=== PATIENT | male | born 1950 | race Caucasian/White ===

== ENCOUNTER → 2023-03-22 04:00 | Outpatient (REF) | payer MEDICARE, OTHER, SELFPAY | LOC: DHSLP 04:00 | PROVIDERS: ATTENDING PHYSICIAN Internal Medicine; FAMILY PHYSICIAN Family Medicine | DX: G47.33 Obstructive sleep apnea (adult) (pediatric) (principal) | CPT/HCPCS: 95800 ==

== ENCOUNTER 2023-05-18 11:08 | Day surgery (SDC) | payer MEDICARE, OTHER, SELFPAY ==
[2023-05-18 13:25] VITALS: BMI 39.6
--- NOTE | 2023-05-18 15:21 | ITS.CL.CARDI ---
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
Cardioversion
Procedure Report:
Cardioversion Report:
Date of Procedure: May 18, 2023
Procedure: Cardioversion
Indication: Symptomatic atrial fibrillation on Eliquis for more than the last 3 weeks without any missed doses
Performing Physician: Giana Oneal MD, JOSE, [facility] [place]
Technique: The patient was brought to the holding area. Signed informed consent was obtained. A time out was called and performed. The patient was anesthetized by the anesthesia service. Anticoagulation status was reviewed and appropriate. R2 pads
were placed anteriorly and posteriorly. Two 200 J synchronized biphasic shocks were delivered which failed to restore sinus rhythm. A third attempt was made using 360 J of synchronized biphasic shock with successfully restored normal sinus rhythm
with frequent PACs. There were no complications.
Conclusion: Uncomplicated cardioversion from atrial fibrillation to sinus rhythm after three total synchronized shocks.
Recommendation: Routine post cardioversion care. 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
Giana Oneal MD, FACC, [facility] [place]
== END 2023-05-18 13:58 | disposition home or self-care (01) ==
LOC: CATH 11:08
PROVIDERS: ATTENDING PHYSICIAN Internal Medicine Cardiovascular Disease; FAMILY PHYSICIAN Family Medicine; OTHER PHYSICIAN Internal Medicine Cardiovascular Disease
DX: I48.91 Unspecified atrial fibrillation (principal); Z79.01 Long term (current) use of anticoagulants
CPT/HCPCS: 92960; 93005

== ENCOUNTER → 2023-08-11 14:52 | Outpatient (REF) | payer MEDICARE, OTHER, SELFPAY ==
--- NOTE | 2023-08-11 16:07 | CARDSERVDEF ---
Echocardiogram with Definity completed after protocol screening completed. Allergies verified.
Patent IV site: Left median antecubital 22 G PC, rapid blood return
IV site flushed with 0.9% NaCl pre and post administration.
Diluted bolus method utilized to enhance visualization of ventricular aguilar.
Total volume given: __4__ mL
Patient tolerated all procedures well without complications.
Heplock D/c ed at 1605, site clear, no redness, no edema. Pressure held for few minutes as pt on Eliquis. No bleeding, 2x2 applied and taped. No change in status.
== END ==
LOC: RCS 14:52
PROVIDERS: ATTENDING PHYSICIAN Internal Medicine Cardiovascular Disease; FAMILY PHYSICIAN Family Medicine
DX: I35.0 Nonrheumatic aortic (valve) stenosis (principal); I50.32 Chronic diastolic (congestive) heart failure
CPT/HCPCS: 93306; Q9957

== ENCOUNTER 2023-10-01 14:47 | Emergency (ER) | payer MEDICARE, OTHER, SELFPAY ==
[2023-10-01 14:51] VITALS: BP 148/81
--- NOTE | 2023-10-01 15:53 | ED.SKININJ ---
HPI-Injury
General
Chief Complaint: Skin Surface Trauma
Source: patient
Exam Limitations: none
Time Seen by Provider: 10/01/23 15:14
History of Present Illness-Injury
Initial Injury comments:
73-year-old male presents with laceration left foot he sustained today. He dropped a knife onto his foot. He is on Eliquis and had trouble getting the wound stop bleeding at home. Last tetanus unknown. No other complaints at this time
Past History
Past History
ED Past Medical History: HTN, Hypercholesterolemia and Other (Urinary retention�self catheterizes)
ED Past Surgical History: Orthopedic
Social History
Tobacco: Non-smoker
Alcohol: None
Drug: None
Personal:
Phy Exam
Physical Exam
Physical Exam:
General: Well-appearing male no acute distress skin: 2 cm laceration dorsal aspect left foot mild
Bruising but no significant bleeding otherwise.
Vascular: 2+ dorsalis pedis pulse distal to the wound left foot.
Neurologic: Good sensation left foot
.
Course
Orders/Labs/Results
Orders:
Orders
10/01/23 15:51
Tetanus/Diphth/Acelpertussis [Adacel] 0.5 ml IM .ONCE ONE
Vital Signs
Initial and Last Documented VS:
Initial Vital Signs
Temp Pulse Resp BP Pulse Ox
98.0 F 67 18 148/81 95
10/01/23 14:51 10/01/23 14:51 10/01/23 14:51 10/01/23 14:51 10/01/23 14:51
Last Documented Vital Signs
Temp Pulse Resp BP Pulse Ox
98.0 F 67 18 148/81 95
10/01/23 14:51 10/01/23 14:51 10/01/23 14:51 10/01/23 14:51 10/01/23 14:51
MDM/Problems Addressed
Differential Diagnosis Includes:
Laceration left dorsal foot without vascular or tendon involvement. Tetanus vaccine updated. The wound was cleansed copiously with saline solution, anesthetized in a local fashion with 1% plain lidocaine. The wound was then closed with 5-0
Prolene sutures in simple interrupted fashion. 5 sutures were required to do so. A dressing was applied. He is stable for discharge with wound care instructions
*Critical Care Note
Total Time (30-74mins, 75-104mins- exclusive of procedures): Not Applicable
ED Attending Note
-
Portions of this chart may have been created with voice recognition software.� Occasional wrong word or��sound alike� substitutions may have occurred due to the inherent limitations of voice recognition software.
Discharge Plan
Departure
Patient Disposition: Home (Routine Discharge)
Date of Disposition: 10/01/23
Time of Disposition: 16:00
Patient with high blood pressure during this ER visit?: No
Discharge Problem:
Laceration
Instructions: Laceration Repair With Stitches (DC)
Prescriptions:
No Action
rosuvastatin 20 MG tablet
20 mg PO DAILY
tamsulosin 0.4 mg Capsule
0.8 mg PO DAILY
Flaxseed Oil
4,000 mg PO DAILY
lisinopril 40 mg Tablet
20 mg PO DAILY
omeprazole 20 mg Tablet,Delayed Release (Dr/Ec)
20 mg PO DAILY
coQ10 (ubiquinol) 100 mg Capsule
500 mg PO DAILY
amiodarone 200 mg Tablet
200 mg PO DAILY
metoprolol succinate 50 mg Tablet Extended Release 24 Hr
50 mg PO DAILY
amoxicillin 500 mg Tablet
500 mg PO TID
Rx Instructions:
x7 days
ascorbic acid (vitamin C) [Vitamin C] 500 mg Tablet
250 mg PO DAILY
FiberCon 625 mg Tablet
1,250 mg PO DAILY
cholecalciferol (vitamin D3) [Vitamin D3] 25 mcg (1,000 unit) Capsule
25 mcg PO DAILY
Eliquis 5 mg Tablet
5 mg PO BID
magnesium oxide 500 mg tablet
2,000 mg PO DAILY
gabapentin 300 mg capsule
300 mg PO BID
Referrals:
Uriah Singh MD [Family Provider] -
Activity Restrictions/Additional Instructions:
Keep clean. Have sutures removed in 10 to 14 days. Return if needed
Interventions
Interventions:
*Risk Screen - Suicide Last Done: 10/01/23 14:51
*General Assessment Last Done: 10/01/23 14:51
*Neglect/Abuse Screening Last Done: 10/01/23 14:51
*ED COVID-19 Vaccine History Last Done: 10/01/23 14:51
Discharge Date and Time
Print Language: JAPANESE
[2023-10-01 16:00] VITALS: BP 139/77
[2023-10-01] MEDS: ADACEL 0.5 ML IM (16:09)
== END 2023-10-01 16:29 | disposition home or self-care (01) ==
LOC: EMR 14:47
PROVIDERS: EMERGENCY PHYSICIAN Emergency Medicine; FAMILY PHYSICIAN Family Medicine
DX: S91.312A Laceration without foreign body, left foot, initial encounter (principal); W20.8XXA Other cause of strike by thrown, projected or falling object, initial encounter; Z23 Encounter for immunization; I10 Essential (primary) hypertension; E78.00 Pure hypercholesterolemia, unspecified; Z79.01 Long term (current) use of anticoagulants
CPT/HCPCS: 99282; 12001; 90471; 90715